=== PATIENT | female | born 2005 | race Caucasian/White ===

== ENCOUNTER → 2024-11-04 08:41 | Outpatient (BNVA) | payer MEDICAID, SELFPAY | PROVIDERS: Family Provider Family Medicine; Visit Provider Nurse Practitioner Family | DX: L70.0 Acne vulgaris (principal); B07.8 Other viral warts; R58 Hemorrhage, not elsewhere classified; R20.8 Other disturbances of skin sensation; L29.89 Other pruritus; L53.8 Other specified erythematous conditions | CPT/HCPCS: 17110; 99214 ==

== ENCOUNTER → 2024-12-21 11:08 | Outpatient (BNVA) | payer MEDICAID, SELFPAY | PROVIDERS: Family Provider Family Medicine; Visit Provider Nurse Practitioner Family | DX: L70.0 Acne vulgaris (principal); B07.8 Other viral warts; R23.8 Other skin changes; Z78.9 Other specified health status; L53.8 Other specified erythematous conditions | CPT/HCPCS: 17110; 99214 ==

== ENCOUNTER → 2025-02-03 08:38 | Outpatient (BNVA) | payer MEDICAID, SELFPAY | PROVIDERS: Family Provider Family Medicine; Visit Provider Nurse Practitioner Family | DX: L70.0 Acne vulgaris (principal); D22.5 Melanocytic nevi of trunk; B07.8 Other viral warts; L53.8 Other specified erythematous conditions; R23.8 Other skin changes; Z78.9 Other specified health status | CPT/HCPCS: 17110; 99214 ==

== ENCOUNTER → 2025-03-08 11:02 | Outpatient (BNVA) | payer MEDICAID, SELFPAY | PROVIDERS: Family Provider Family Medicine; Visit Provider Nurse Practitioner Family | DX: L70.0 Acne vulgaris (principal); B07.8 Other viral warts; L53.8 Other specified erythematous conditions; R23.8 Other skin changes; Z78.9 Other specified health status; D48.5 Neoplasm of uncertain behavior of skin | CPT/HCPCS: 11102; 17110; 99213 ==

== ENCOUNTER → 2025-03-29 09:15 | Outpatient (BNVA) | payer MEDICAID, SELFPAY | PROVIDERS: Family Provider Family Medicine; Visit Provider Nurse Practitioner Family | DX: L70.0 Acne vulgaris (principal); B07.8 Other viral warts; L53.8 Other specified erythematous conditions; R23.8 Other skin changes; Z78.9 Other specified health status | CPT/HCPCS: 17110; 99213 ==